=== PATIENT | female | born 1940 | race Caucasian/White ===

== ENCOUNTER 2016-07-20 09:48 | Outpatient (RCR) | payer OTHER ==
[~2016-07-20 09:48] MED LIST: IBUPROFEN600 MG ORAL; NORCO 10/3251 EA ORAL
== END 2016-08-11 | disposition home or self-care (01) ==
LOC: PTY 09:48
DX: M70.62 Trochanteric bursitis, left hip (principal); M75.21 Bicipital tendinitis, right shoulder; M25.511 Pain in right shoulder; M25.552 Pain in left hip; M81.0 Age-related osteoporosis without current pathological fracture
CPT/HCPCS: 97035; 97110; 97140; G0283

== ENCOUNTER 2016-08-12 08:48 | Outpatient (RCR) | payer OTHER | END 2016-09-08 | disposition home or self-care (01) | LOC: PTY 08:48 | DX: M70.62 Trochanteric bursitis, left hip (principal); M75.21 Bicipital tendinitis, right shoulder; M25.511 Pain in right shoulder; M25.552 Pain in left hip; M81.0 Age-related osteoporosis without current pathological fracture ==

== ENCOUNTER 2016-09-10 14:25 | Outpatient (RCR) | payer OTHER | END 2016-10-09 | disposition home or self-care (01) | LOC: PTY 14:25 | DX: M70.62 Trochanteric bursitis, left hip (principal); M75.21 Bicipital tendinitis, right shoulder; M25.511 Pain in right shoulder; M25.552 Pain in left hip; M81.0 Age-related osteoporosis without current pathological fracture | CPT/HCPCS: 97110; 97140; G0283 ==

== ENCOUNTER 2016-10-13 10:50 | Outpatient (RCR) | payer OTHER | END 2016-11-08 | disposition home or self-care (01) | LOC: PTY 10:50 | DX: M70.62 Trochanteric bursitis, left hip (principal); M75.21 Bicipital tendinitis, right shoulder; M67.911 Unspecified disorder of synovium and tendon, right shoulder; M67.921 Unspecified disorder of synovium and tendon, right upper arm | CPT/HCPCS: 97110; 97140; G0283 ==

== ENCOUNTER 2016-11-17 10:30 | Outpatient (RCR) | payer OTHER | END 2016-12-09 | disposition home or self-care (01) | LOC: PTY 10:30 | DX: M70.62 Trochanteric bursitis, left hip (principal); M75.21 Bicipital tendinitis, right shoulder; M67.911 Unspecified disorder of synovium and tendon, right shoulder; M67.921 Unspecified disorder of synovium and tendon, right upper arm | CPT/HCPCS: 97110; 97140; G0283 ==

== ENCOUNTER 2016-12-30 09:40 | Outpatient (RCR) | payer OTHER | END 2017-01-08 | disposition home or self-care (01) | LOC: PTY 09:40 | DX: M70.62 Trochanteric bursitis, left hip (principal); M75.21 Bicipital tendinitis, right shoulder; M67.911 Unspecified disorder of synovium and tendon, right shoulder; M67.921 Unspecified disorder of synovium and tendon, right upper arm ==

== ENCOUNTER 2017-11-29 10:30 | Outpatient (RCR) | payer OTHER | END 2017-12-09 | disposition home or self-care (01) | LOC: PTY 10:30 | DX: R29.6 Repeated falls (principal) ==

== ENCOUNTER 2017-12-13 09:50 | Outpatient (RCR) | payer OTHER | END 2018-01-08 | disposition home or self-care (01) | LOC: PTY 09:50 | DX: R29.6 Repeated falls (principal) ==

== ENCOUNTER 2018-01-10 09:33 | Outpatient (RCR) | payer OTHER | END 2018-02-08 | disposition home or self-care (01) | LOC: PTY 09:33 | DX: R29.6 Repeated falls (principal) ==

== ENCOUNTER 2018-02-11 10:00 | Outpatient (RCR) | payer OTHER | END 2018-03-11 | disposition home or self-care (01) | LOC: PTY 10:00 | DX: R29.6 Repeated falls (principal) ==

== ENCOUNTER 2018-04-01 10:10 | Outpatient (RCR) | payer OTHER | END 2018-04-10 | disposition home or self-care (01) | LOC: PTY 10:10 | DX: R29.6 Repeated falls (principal); Z91.81 History of falling ==

== ENCOUNTER 2018-04-13 10:10 | Outpatient (RCR) | payer OTHER | END 2018-05-11 | disposition home or self-care (01) | LOC: PTY 10:10 | DX: R29.6 Repeated falls (principal) ==